=== PATIENT | male | born 1985 | race Two or more races ===

== ENCOUNTER 2023-10-11 10:32 | Emergency (ER) | payer BC ==
[~2023-10-11] VITALS: Ht 167.6 cm; Wt 78.0 kg
[2023-10-11 10:53] VITALS: BP 126/69; TEMP 98.3; O2SAT 95
[2023-10-11] MEDS ORDERED: IBUPROFEN 600 MG TABLET ONE (11:26)
[2023-10-11] MEDS: IBUPROFEN 600 MG TABLET PO ONE (11:28)
== END 2023-10-11 13:17 | disposition home or self-care (01) ==
LOC: ER 10:32
DX: M25.562 Pain in left knee (principal)
CPT/HCPCS: 73564-TC